=== PATIENT | female | born 1970 | race Caucasian/White ===

== ENCOUNTER 2018-04-04 22:37 | Outpatient (CLI) | payer OTHER | END 2018-04-04 22:38 | disposition critical access hospital (66) | LOC: EMS 22:37 | PROVIDERS: ATTEND Surgery | DX: R46.89 Other symptoms and signs involving appearance and behavior (principal) | CPT/HCPCS: A0425; A0429 ==

== ENCOUNTER 2018-04-04 23:36 | Emergency (ER) | payer OTHER ==
[2018-04-04] MEDS ORDERED: WATER FOR INJECTION,STERILE 10 ML ONE (23:53)
[2018-04-04] MEDS ORDERED: OLANZapine 10 MG VIAL IM ONE (23:53)
--- NOTE | 2018-04-04 23:56 | ED Physician Documentation ---
History of Present Illness - Stated complaint Stated Complaint: DIZZY S/P SMOKING WEED - Chief complaint Chief Complaint: MHE - History obtained from History obtained from: Patient, EMS - History of Present Illness Timing: Unknown - Additonal information Additional information: BIBA. per medic report, patient had been driving when police stopped her and explained that her car was to be impounded. She was acting too erratically to assess and thus sent to ED via ambulance for odd behavior. Immediately on arrival, during medic report, patient is acting odd, gets off stretcher, walking through ED hallways aimlessly, and then grabs the forearm of the secretary board of commissioners at the nurses station (not violently grabbing, but simply quite confused). This was all despite repeated attempts by staff and myself to instruct and direct patient back to her ED room. She also repeatedly uses her phone when I try to talk to her, often sticking a single finger towards me and telling me to wait (presumably while she texts and calls whoever she is calling) . I explained several times that she needs to stay in her room on the stretcher while she is a patient in my emergency department so that I can properly assess her, and also so that her behavior does not interfere with other patients care. She did not answer any of my questions and would not follow any commands except that with repeated direction, she eventually sat back down on the stretcher. plastic worker report, there was reason to believe patient might have ingested, or smoked, marijuana tonight. Patient will not answer when I ask if this is true. Immediately after I left the room, she could be heard making a phone call, and I was informed that she was calling 911 from the room. After she completed this call, I again tried to communicate with her. She was again walking around the room, not cooperating nor communicating with me. I explained that I would need to give her an injection of medication that would sedate her, as she was too confused to be allowed to leave, and her behavior was hindering the medical care of both herself and the other patients in the emergency department. It was unclear if she understood this and so I repeated it to her twice, and by the third explanation, she tells me I understand. 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 HEENT: None Psych: None Musculoskeletal: None Derm: None - Past Surgical History Past Surgical History: No - Present Medications Home Medications: Ambulatory Orders Medication Instructions Recorded Confirmed No Known Home Medications [No 04/04/18 04/04/18 Known Home Medications] - Allergies Allergies/Adverse Reactions: Allergies Allergy/AdvReac Type Severity Reaction Status Date / Time No Known Drug Allergies Allergy Verified 04/04/18 23:50 - Social History Does the pt smoke?: No Smoking Status: Never smoker Does the pt drink ETOH?: Yes Does the pt have substance abuse?: Yes Substance Use and Type: Marijuana - Immunizations Immunizations: TDAP >10years/unknown, Other immun not current - POLST Patient has POLST: No PD ED PE NORMAL - Vitals Vital signs reviewed: Yes - General General: Well developed/nourished, Other (awake, alert. answers two of three orientation questions (lace, uear), but not name (unclear if this is due to confusion or that she is uninterested or distracted)) - HEENT HEENT: PERRL, EOMI, Moist mucous membranes - Neck Neck: Supple, no meningeal sign - Cardiac Cardiac: RRR, No murmur - Respiratory Respiratory: No respiratory distress, Clear bilaterally - Abdomen Abdomen: Soft, Non tender - Neuro Neuro: loop tender 2-12 intact, No motor deficit, No sensory deficit, Normal speech Eye Opening: Spontaneous Motor: Obeys Commands (best answer involves obeys commands (does not obey most commands, but will eventually sit on stretcher when repeatedly directed)) Verbal: Oriented GCS Score: 15 Results - Vitals Vitals: Oxygen O2 Source Room air - Labs Labs: Laboratory Tests 04/05/18 04/05/18 04/05/18 00:10 00:10 00:20 WBC 12.2 H RBC 3.60 L Hgb 10.9 L Hct 33.2 L MCV 92.2 MCH 30.3 MCHC 32.9 RDW 13.0 Plt Count 262 MPV 9.8 Neut # (Auto) 10.6 H Lymph # (Auto) 0.9 L [place] # (Auto) 0.7 Eos # (Auto) 0.0 Baso # (Auto) 0.1 Absolute Nucleated RBC 0.00 Nucleated RBC % 0.0 Sodium Potassium Chloride Carbon Dioxide Anion Gap BUN Creatinine Estimated GFR (MDRD) Glucose Calcium Urine Color YELLOW Urine Clarity CLEAR Urine pH 6.5 Ur Specific [place] 1.015 1.015 Urine Protein NEGATIVE Urine Glucose (UA) NEGATIVE Urine Ketones TRACE Urine Occult Blood TRACE-LYSE Urine Nitrite NEGATIVE Urine Bilirubin NEGATIVE Urine Urobilinogen 0.2 (NORMAL) Ur Leukocyte Esterase NEGATIVE Ur Microscopic Review NOT INDICATED Urine Culture Comments NOT INDICATED Urine HCG, Qual NEGATIVE Salicylates Urine Opiates Screen NEGATIVE Ur Oxycodone Screen NEGATIVE Urine Methadone Screen NEGATIVE Ur Propoxyphene Screen NEGATIVE Acetaminophen Ur Barbiturates Screen NEGATIVE Ur Tricyclics Screen NEGATIVE Ur Phencyclidine Scrn NEGATIVE Ur Amphetamine Screen NEGATIVE U Methamphetamines Scrn NEGATIVE U Benzodiazepines Scrn NEGATIVE Urine Cocaine Screen NEGATIVE U Cannabinoids Screen POSITIVE H Ethyl Alcohol 04/05/18 00:20 WBC RBC Hgb Hct MCV MCH MCHC RDW Plt Count MPV Neut # (Auto) Lymph # (Auto) [place] # (Auto) Eos # (Auto) Baso # (Auto) Absolute Nucleated RBC Nucleated RBC % Sodium 129 L Potassium 2.9 L Chloride 100 L Carbon Dioxide 21 Anion Gap 8.0 BUN 11 Creatinine 0.6 Estimated GFR (MDRD) 106 Glucose 208 H Calcium 8.6 Urine Color Urine Clarity Urine pH Ur Specific [place] Urine Protein Urine Glucose (UA) Urine Ketones Urine Occult Blood Urine Nitrite Urine Bilirubin Urine Urobilinogen Ur Leukocyte Esterase Ur Microscopic Review Urine Culture Comments Urine HCG, Qual Salicylates < 6.0 Urine Opiates Screen Ur Oxycodone Screen Urine Methadone Screen Ur Propoxyphene Screen Acetaminophen < 10 L Ur Barbiturates Screen Ur Tricyclics Screen Ur Phencyclidine Scrn Ur Amphetamine Screen U Methamphetamines Scrn U Benzodiazepines Scrn Urine Cocaine Screen U Cannabinoids Screen Ethyl Alcohol < 5.0 PD MEDICAL DECISION MAKING - ED course Complexity details: reviewed results, re-evaluated patient, considered differential, d/w patient ED course: patient eventually laid down on stretcher and was calm and cooperative for the remainder of her ED stay. A friend showed up late in ED stay, and at that time tests were resulted, so I reassessed patient. Patient now is awake, alert, oriented and pleasant and polite. She is quite apologetic and thanks me and the staff for taking care of her. she admits to intake of marijuana tonight, says this was the third time, and definitely my last time. - Sepsis Event Vital Signs: Oxygen O2 Source Room air Departure - Departure Disposition: Home, Self Care Clinical Impression: Dizziness Condition: Good Instructions: ED Dizziness UKO Follow-Up: [facility] [Provider Group] [facility] [Provider Group] Discharge Date/Time: 04/05/18 01:58
[2018-04-05] MEDS ORDERED: OLANZapine 10 MG VIAL IM STA (00:01)
[2018-04-05 00:19] LABS: BILIRUBIN,URINE NEGATIVE (NEGATIVE); GLUCOSE, URINE (UA) NEGATIVE (NEGATIVE); KETONES,URINE (UA) TRACE mg/dL (NEGATIVE); LEUKOCYTE ESTERASE, URINE NEGATIVE (NEGATIVE); MUDS CUTOFF CONCENTRATIONS CUTOFF CONC BELOW:; NITRITE,URINE NEGATIVE (NEGATIVE); OCCULT BLOOD,URINE TRACE-LYSE (NEGATIVE); PH,URINE 6.5 PH (5.0-7.5); PROTEIN,URINE NEGATIVE (NEGATIVE); UROBILINOGEN,URINE 0.2 (NORMAL) E.U./dL (NORMAL)
[2018-04-05 00:21] LABS: CLARITY,URINE CLEAR (CLEAR)
[2018-04-05 00:22] LABS: HCG UR QUAL NEGATIVE
[2018-04-05 00:30] LABS: BASOPHILS # (AUTO) 0.1 10^3/uL (0.0-0.1); BASOPHILS % (AUTO) 0.5 %; HGB - HEMOGLOBIN 10.9 g/dL (12.0-16.0); LYMPHOCYTES # (AUTO) 0.9 10^3/uL (1.5-3.5); LYMPHOCYTES % (AUTO) 7.3 %; MEAN CORPUSCULAR HEMOGLOBIN 30.3 pg (27.0-31.0); MEAN CORPUSCULAR HGB CONC 32.9 g/dL (32.0-36.0); MEAN CORPUSCULAR VOLUME 92.2 fL (81.0-99.0); MEAN PLATELET VOLUME 9.8 fL (7.9-10.8); MONOCYTES # (AUTO) 0.7 10^3/uL (0.0-1.0); MONOCYTES % (AUTO) 5.4 %; NEUTROPHILS # (AUTO) 10.6 10^3/uL (1.5-6.6); NEUTROPHILS % (AUTO) 86.8 %; PLT - PLATELET COUNT 262 10^3/uL (130-450); WHITE BLOOD COUNT 12.2 x10^3/uL (4.8-10.8)
[2018-04-05 00:34] LABS: AMPHETAMINE SCREEN,URINE NEGATIVE (NEGATIVE); BENZODIAZEPINES SCREEN, URINE NEGATIVE (NEGATIVE); COCAINE SCREEN URINE NEGATIVE (NEGATIVE); METHADONE SCREEN, URINE NEGATIVE (NEGATIVE); METHAMPHETAMINES SCREEN, URINE NEGATIVE (NEGATIVE); OPIATE SCREEN, URINE NEGATIVE (NEGATIVE); OXYCODONE SCREEN, URINE NEGATIVE (NEGATIVE); PROPOXYPHENE SCREEN, URINE NEGATIVE (NEGATIVE); TRICYCLIC ANTIDEPRESSANT,URINE NEGATIVE (NEGATIVE)
[2018-04-05 00:41] LABS: BUN - BLOOD UREA NITROGEN 11 mg/dL (6-20); CALCIUM 8.6 mg/dL (8.5-10.3); CARBON DIOXIDE - CO2 21 mmol/L (21-32); CHLORIDE 100 mmol/L (101-111); CREATININE 0.6 mg/dL (0.4-1.0); GFR - MDRD 106 (>89); GLUCOSE 208 mg/dL (70-100); SALICYLATE < 6.0 mg/dL; SODIUM 129 mmol/L (135-145)
[2018-04-05 00:43] LABS: ACETAMINOPHEN < 10 ug/mL (10-30)
[2018-04-05] MEDS ORDERED: POTASSIUM BICARB 25 MEQ TABLET PO STA (01:48)
[2018-04-05 01:56] VITALS: BP 113/69
== END 2018-04-05 01:58 | disposition home or self-care (01) ==
LOC: EDBD → ED 23:36
DX: R42 Dizziness and giddiness (principal); F12.90 Cannabis use, unspecified, uncomplicated
CPT/HCPCS: 80048; 80306; 80307; 80320; 80329; 81003; 81025; 85025; 99283; 99284; A9270; 36415; 81001; 87086